=== PATIENT | female | born 2000 ===

== ENCOUNTER 2021-11-10 17:45 | Emergency (ER) | payer SELFPAY ==
[2021-11-10 18:03] VITALS: BP 121/72
== END 2021-11-11 06:30 | disposition left against medical advice (07) ==
LOC: ED 17:45
DX: J02.9 Acute pharyngitis, unspecified (principal); Z53.21 Procedure and treatment not carried out due to patient leaving prior to being seen by health care provider
CPT/HCPCS: 87116; 87430

== ENCOUNTER 2021-12-15 04:57 | Emergency (ER) | payer OTHER ==
[2021-12-15 06:52] VITALS: BP 132/78
[2021-12-15] MEDS ORDERED: TETANUS,DIPH,PERTUSS(ACELL) VACCINE 0.5 ML SYRINGE IM ONE (08:04)
[2021-12-15] MEDS ORDERED: BACITRACIN ZINC OINT 28.4 GM TP ONE (08:05)
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
== END 2021-12-15 09:56 ==
LOC: ED 04:57
DX: S80.212A Abrasion, left knee, initial encounter (principal); X58.XXXA Exposure to other specified factors, initial encounter; Y93.89 Activity, other specified; Y92.89 Other specified places as the place of occurrence of the external cause; Y99.8 Other external cause status
CPT/HCPCS: 90715; 99283